=== PATIENT | male | born 1945 | race Caucasian/White ===

== ENCOUNTER 2020-09-09 23:08 | Inpatient (IN) ==
[2020-09-09] MEDS ORDERED: FUROSEMIDE 40 MG/4 ML VIAL IV STA (23:36)
[2020-09-09] MEDS ORDERED: ONDANSETRON 4 MG/2 ML VIAL IV STA (23:36)
[2020-09-10 00:04] LABS: Basophils % 0.6 % (0.0-0.8); Eosinophils # 0.5 10*3/uL (0.0-0.87); Hematocrit 24.8 VOL% (42.0-52.0); Hemoglobin 7.3 GM/DL (14.0-18.0); Immature Granulocytes % 0.6 %; Immature Granulocytes Absolute 0.04 #; Lymphocytes # 1.9 10*3/uL (1.4-4.0); Lymphocytes % 26.9 % (21.2-54.2); Mean Corpuscular HGB Conc 29.4 GM/DL (32-36); Mean Corpuscular Volume 97.6 FL (87-102); Mean Platelet Volume 8.8 FL (9.6-12.0); Monocytes % 17.1 % (1.7-12.7); Neutrophils % 47.8 % (38.7-73.9); Platelet Count 279 T/CUMM (130-400); Red Blood Count 2.54 MC/CUMM (3.8-5.5); Red Cell Distribution Width 14.7 % (9.3-17.3); White Blood Count 6.9 T/CUMM (4-12)
[2020-09-10 00:21] LABS: PT Patient Result 10.9 SECS (9.8-11.9)
[2020-09-10 00:45] LABS: Alanine Aminotransferase 21 U/L (16-61); Alkaline Phosphatase 78 U/L (45-117); Aspartate Amino Transferase 16 U/L (0-37); Bilirubin,Total < 0.39 MG/DL (0.2-1.0); Blood Urea Nitrogen 44 MG/DL (7-18); Calcium 7.7 MG/DL (8.5-10.1); Carbon Dioxide 26 MMOL/L (21-32); Estimated Glom Filtration Rate 30 ML/MIN; Glucose 116 MG/DL (74-106); Osmolality,Calculated 288.5 MOS/KG (273-304); Potassium 5.2 MMOL/L (3.5-5.1); Sodium 139 MMOL/L (136-145); Total Protein 6.9 G/DL (6.4-8.3)
[2020-09-10 01:04] LABS: Bilirubin,Urine Negative (Negative); Blood, Urine Negative (Negative); Glucose,Urine (UA) Negative (Negative); Ketones,Urine Negative (Negative); Mucus,Urine Occasional /LPF (Occasional); Nitrite,Urine Negative (Negative); Protein,Urine 100 MG/DL; RBC,Urine 19 /HPF (0-4); Squamous Epithelial Cell,Urine Occasional /HPF (0-10); Urine Appearance Slightly Hazy (Clear); Urine Color Yellow (Yellow); Urine Specific Gravity 1.013 (1.001-1.035); Urine Urobilinogen < 2.0 EU/DL (0.2-1.0); WBC,Urine 56 /HPF (0-6)
[2020-09-10] MEDS ORDERED: cefTRIAXone 1,000 MG in SODIUM CHLORIDE 0.9% 100 ML IV STA (01:15)
[2020-09-10] MEDS ORDERED: cefTRIAXone 1,000 MG VIAL ONE (01:28)
[2020-09-10] MEDS ORDERED: SODIUM CHLORIDE 0.9% 100 ML IV ONE (01:29)
[2020-09-10] MEDS ORDERED: NITROGLYCERIN SL 0.4 MG TABLET SL PRN (02:38)
[2020-09-10] MEDS ORDERED: ACETAMINOPHEN 325 MG TABLET PO PRN (02:44)
[2020-09-10] MEDS ORDERED: GLUCAGON 1 MG VIAL IM PRN (02:44)
[2020-09-10] MEDS ORDERED: ONDANSETRON 4 MG/2 ML VIAL IV PRN (02:44)
[2020-09-10] MEDS ORDERED: DEXTROSE 50% 25 GM/50 ML VIAL IV PRN (02:44)
[2020-09-10] MEDS ORDERED: ALBUTEROL/IPRATROPIUM 3 ML NEB RESP TX PRN (02:50)
[2020-09-10] MEDS ORDERED: ALBUTEROL/IPRATROPIUM 3 ML NEB RESP TX ONE (02:50)
[2020-09-10 04:15] LABS: Eosinophils 12 % (0-10); Hypochromasia Slight; Lymphocytes 21 % (20-55); Metamyelocytes 1 %; Segmented Neutrophils 50 % (50-85); Total Cells Counted 100
[2020-09-10 04:17] LABS: Microcytosis 1+
[2020-09-10 04:18] LABS: Platelet Estimate Normal
[2020-09-10 06:12] LABS: Basophils # 0.1 10*3/uL (0.0-0.2); Basophils % 0.7 % (0.0-0.8); Eosinophils # 0.4 10*3/uL (0.0-0.87); Eosinophils % 6.3 % (0.00-10.9); Hematocrit 22.7 VOL% (42.0-52.0); Hemoglobin 6.6 GM/DL (14.0-18.0); Immature Granulocytes % 0.4 %; Immature Granulocytes Absolute 0.03 #; Lymphocytes # 2.1 10*3/uL (1.4-4.0); Lymphocytes % 31.3 % (21.2-54.2); Mean Corpuscular HGB Conc 29.1 GM/DL (32-36); Mean Corpuscular Volume 97.4 FL (87-102); Mean Platelet Volume 9.1 FL (9.6-12.0); Monocytes % 18.2 % (1.7-12.7); Neutrophils % 43.1 % (38.7-73.9); Platelet Count 272 T/CUMM (130-400); Red Blood Count 2.33 MC/CUMM (3.8-5.5); Red Cell Distribution Width 14.9 % (9.3-17.3); White Blood Count 6.7 T/CUMM (4-12)
[2020-09-10 06:50] LABS: Albumin 2.6 G/DL (3.4-5.0); Bilirubin,Total 0.7 MG/DL (0.2-1.0); Calcium 7.7 MG/DL (8.5-10.1); Osmolality,Calculated 287.5 MOS/KG (273-304); Potassium 4.9 MMOL/L (3.5-5.1); Total Protein 6.8 G/DL (6.4-8.3)
[2020-09-10 06:55] LABS: Eosinophils 15 % (0-10); Hypochromasia 1+; Lymphocytes 26 % (20-55); Segmented Neutrophils 46 % (50-85); Total Cells Counted 100
[2020-09-10 06:56] LABS: Microcytosis 1+; Ovalocytes Slight; Platelet Estimate Normal; Polychromasia Slight
[2020-09-10] MEDS ORDERED: amLODIPine 10 MG TABLET PO SCH (09:00)
[2020-09-10] MEDS: FINASTERIDE 5 MG TABLET PO SCH (09:42)
[2020-09-10] MEDS: busPIRone 15 MG TABLET PO SCH (09:42)
[2020-09-10] MEDS: ASPIRIN EC 81 MG TABLET PO SCH (09:42)
[2020-09-10] MEDS: TAMSULOSIN 0.4 MG CAPSULE PO SCH (09:42)
[2020-09-10] MEDS: FUROSEMIDE 40 MG/4 ML VIAL IV SCH ×2 (09:42→19:21)
[2020-09-10] MEDS: MULTIVITAMIN (OCUVITE) TABLET PO SCH ×2 (09:42→21:32)
[2020-09-10] MEDS: PANTOPRAZOLE 20 MG TABLET PO SCH (09:42)
[2020-09-10] MEDS: ATORVASTATIN 20 MG TABLET PO SCH (09:42)
[2020-09-10] MEDS: SOTALOL 80 MG TABLET PO SCH ×2 (09:42→21:32)
[2020-09-10] MEDS: POLYETHYLENE GLYCOL POWDER 17 GM PACK PO SCH (09:43)
[2020-09-10] MEDS: BISACODYL 5 MG TABLET PO SCH (09:46)
[2020-09-10] MEDS ORDERED: SODIUM CHLORIDE 0.9% 1,000 ML IV PRN (17:41)
[2020-09-10] MEDS: APIXABAN 2.5 MG TABLET PO SCH (21:31)
[2020-09-10] MEDS: rOPINIRole 1 MG TABLET PO SCH (21:32)
[2020-09-11] MEDS: cefTRIAXone 1,000 MG in SYRINGE 1 EACH IV SCH (01:51)
[2020-09-11] MEDS: FUROSEMIDE 40 MG/4 ML VIAL IV SCH ×2 (09:09→18:47)
[2020-09-11] MEDS: busPIRone 15 MG TABLET PO SCH (09:09)
[2020-09-11] MEDS: FINASTERIDE 5 MG TABLET PO SCH (09:10)
[2020-09-11] MEDS: PANTOPRAZOLE 20 MG TABLET PO SCH (09:10)
[2020-09-11] MEDS: BISACODYL 5 MG TABLET PO SCH (09:10)
[2020-09-11] MEDS: MULTIVITAMIN (OCUVITE) TABLET PO SCH ×2 (09:10→20:16)
[2020-09-11] MEDS: ATORVASTATIN 20 MG TABLET PO SCH (09:10)
[2020-09-11] MEDS: ASPIRIN EC 81 MG TABLET PO SCH (09:10)
[2020-09-11] MEDS: TAMSULOSIN 0.4 MG CAPSULE PO SCH (09:11)
[2020-09-11] MEDS: SOTALOL 80 MG TABLET PO SCH ×2 (09:11→20:16)
[2020-09-11] MEDS: POLYETHYLENE GLYCOL POWDER 17 GM PACK PO SCH (09:11)
[2020-09-11] MEDS: APIXABAN 2.5 MG TABLET PO SCH (09:11)
[2020-09-11 10:40] LABS: Basophils # 0.1 10*3/uL (0.0-0.2); Basophils % 1.1 % (0.0-0.8); Eosinophils # 0.5 10*3/uL (0.0-0.87); Eosinophils % 8.1 % (0.00-10.9); Hematocrit 25.2 VOL% (42.0-52.0); Hemoglobin 7.5 GM/DL (14.0-18.0); Immature Granulocytes % 0.4 %; Immature Granulocytes Absolute 0.02 #; Lymphocytes # 1.9 10*3/uL (1.4-4.0); Lymphocytes % 34.4 % (21.2-54.2); Mean Corpuscular HGB Conc 29.8 GM/DL (32-36); Mean Corpuscular Volume 96.9 FL (87-102); Mean Platelet Volume 8.8 FL (9.6-12.0); Monocytes % 18.7 % (1.7-12.7); Neutrophils % 37.3 % (38.7-73.9); Platelet Count 264 T/CUMM (130-400); Red Cell Distribution Width 15.4 % (9.3-17.3); White Blood Count 5.6 T/CUMM (4-12)
[2020-09-11 10:59] LABS: Calcium 7.9 MG/DL (8.5-10.1); Osmolality,Calculated 282.2 MOS/KG (273-304); Potassium 5.2 MMOL/L (3.5-5.1)
[2020-09-11 11:12] LABS: Eosinophils 10 % (0-10); Lymphocytes 33 % (20-55); Platelet Estimate Adequate; Segmented Neutrophils 42 % (50-85); Total Cells Counted 100
[2020-09-11 11:13] LABS: Hypochromasia 2+; Microcytosis 1+
[2020-09-11] MEDS: rOPINIRole 1 MG TABLET PO SCH (20:16)
[2020-09-11] MEDS: ZALEPLON 5 MG CAPSULE PO PRN (22:32)
[2020-09-12] MEDS: cefTRIAXone 1,000 MG in SYRINGE 1 EACH IV SCH (01:55)
[2020-09-12 05:22] LABS: Basophils # 0.1 10*3/uL (0.0-0.2); Eosinophils # 0.6 10*3/uL (0.0-0.87); Eosinophils % 8.9 % (0.00-10.9); Hematocrit 25.5 VOL% (42.0-52.0); Hemoglobin 7.7 GM/DL (14.0-18.0); Immature Granulocytes % 0.8 %; Immature Granulocytes Absolute 0.06 #; Lymphocytes # 2.1 10*3/uL (1.4-4.0); Lymphocytes % 29.5 % (21.2-54.2); Mean Corpuscular HGB Conc 30.2 GM/DL (32-36); Mean Corpuscular Volume 95.9 FL (87-102); Mean Platelet Volume 8.9 FL (9.6-12.0); Monocytes % 18.8 % (1.7-12.7); Platelet Count 288 T/CUMM (130-400); Red Blood Count 2.66 MC/CUMM (3.8-5.5); Red Cell Distribution Width 15.4 % (9.3-17.3); White Blood Count 7.1 T/CUMM (4-12)
[2020-09-12 05:47] LABS: Calcium 7.9 MG/DL (8.5-10.1); Potassium 4.9 MMOL/L (3.5-5.1)
[2020-09-12 05:49] LABS: Atypical Lymphocytes Few; Band Neutrophils 1 % (0-10); Eosinophils 10 % (0-10); Lymphocytes 32 % (20-55); Segmented Neutrophils 43 % (50-85); Total Cells Counted 100
[2020-09-12 05:50] LABS: Hypochromasia 2+; Microcytosis 1+; Polychromasia Slight
[2020-09-12 05:51] LABS: Platelet Estimate Normal
[2020-09-12] MEDS: MULTIVITAMIN (OCUVITE) TABLET PO SCH ×2 (08:49→20:39)
[2020-09-12] MEDS: busPIRone 15 MG TABLET PO SCH (08:50)
[2020-09-12] MEDS: ATORVASTATIN 20 MG TABLET PO SCH (08:50)
[2020-09-12] MEDS: FINASTERIDE 5 MG TABLET PO SCH (08:50)
[2020-09-12] MEDS: BISACODYL 5 MG TABLET PO SCH (08:50)
[2020-09-12] MEDS: ASPIRIN EC 81 MG TABLET PO SCH (08:50)
[2020-09-12] MEDS: SOTALOL 80 MG TABLET PO SCH ×2 (08:50→20:39)
[2020-09-12] MEDS: TAMSULOSIN 0.4 MG CAPSULE PO SCH ×2 (08:51→20:39)
[2020-09-12] MEDS: PANTOPRAZOLE 20 MG TABLET PO SCH (08:51)
[2020-09-12] MEDS: FUROSEMIDE 40 MG/4 ML VIAL IV SCH ×2 (08:51→16:44)
[2020-09-12] MEDS: POLYETHYLENE GLYCOL POWDER 17 GM PACK PO SCH (08:51)
[2020-09-12] MEDS ORDERED: SODIUM CHLORIDE 0.9% 1,000 ML IV PRN (14:25)
[2020-09-12] MEDS: ZALEPLON 5 MG CAPSULE PO PRN (20:39)
[2020-09-12] MEDS: rOPINIRole 1 MG TABLET PO SCH (20:39)
[2020-09-13] MEDS: cefTRIAXone 1,000 MG in SYRINGE 1 EACH IV SCH ×2 (01:58→02:00)
[2020-09-13 05:50] LABS: Basophils # 0.1 10*3/uL (0.0-0.2); Basophils % 1.1 % (0.0-0.8); Eosinophils # 0.6 10*3/uL (0.0-0.87); Eosinophils % 9.3 % (0.00-10.9); Hemoglobin 8.8 GM/DL (14.0-18.0); Immature Granulocytes % 0.5 %; Immature Granulocytes Absolute 0.03 #; Lymphocytes # 1.7 10*3/uL (1.4-4.0); Mean Corpuscular HGB Conc 30.3 GM/DL (32-36); Mean Corpuscular Volume 93.5 FL (87-102); Mean Platelet Volume 8.9 FL (9.6-12.0); Neutrophils % 45.1 % (38.7-73.9); Platelet Count 314 T/CUMM (130-400); Red Cell Distribution Width 15.9 % (9.3-17.3); White Blood Count 6.7 T/CUMM (4-12)
[2020-09-13 06:30] LABS: Anisocytosis 2+; Band Neutrophils 5 % (0-10); Eosinophils 10 % (0-10); Lymphocytes 25 % (20-55); Macrocytosis Slight; Ovalocytes Few; Platelet Estimate Normal; Segmented Neutrophils 41 % (50-85); Total Cells Counted 100
[2020-09-13 09:01] LABS: Calcium 8.3 MG/DL (8.5-10.1); Osmolality,Calculated 286.8 MOS/KG (273-304); Potassium 4.9 MMOL/L (3.5-5.1)
[2020-09-13] MEDS: busPIRone 15 MG TABLET PO SCH (09:47)
[2020-09-13] MEDS: BISACODYL 5 MG TABLET PO SCH (09:47)
[2020-09-13] MEDS: FUROSEMIDE 40 MG/4 ML VIAL IV SCH ×2 (09:47→16:04)
[2020-09-13] MEDS: ASPIRIN EC 81 MG TABLET PO SCH (09:47)
[2020-09-13] MEDS: TAMSULOSIN 0.4 MG CAPSULE PO SCH ×2 (09:47→21:32)
[2020-09-13] MEDS: POLYETHYLENE GLYCOL POWDER 17 GM PACK PO SCH (09:48)
[2020-09-13] MEDS: ASCORBIC ACID 500 MG TABLET PO SCH ×2 (09:48→21:32)
[2020-09-13] MEDS: PANTOPRAZOLE 20 MG TABLET PO SCH (09:48)
[2020-09-13] MEDS: MULTIVITAMIN (OCUVITE) TABLET PO SCH ×2 (09:48→21:32)
[2020-09-13] MEDS: ATORVASTATIN 20 MG TABLET PO SCH (09:48)
[2020-09-13] MEDS: FINASTERIDE 5 MG TABLET PO SCH (09:48)
[2020-09-13] MEDS: rOPINIRole 1 MG TABLET PO SCH (21:32)
[2020-09-14] MEDS: cefTRIAXone 1,000 MG in SYRINGE 1 EACH IV SCH (01:31)
[2020-09-14 05:24] LABS: Basophils # 0.1 10*3/uL (0.0-0.2); Basophils % 0.8 % (0.0-0.8); Eosinophils # 0.7 10*3/uL (0.0-0.87); Eosinophils % 10.1 % (0.00-10.9); Hematocrit 27.7 VOL% (42.0-52.0); Hemoglobin 8.3 GM/DL (14.0-18.0); Immature Granulocytes Absolute 0.07 #; Lymphocytes # 2.3 10*3/uL (1.4-4.0); Lymphocytes % 31.6 % (21.2-54.2); Mean Corpuscular Volume 94.5 FL (87-102); Mean Platelet Volume 8.9 FL (9.6-12.0); Monocytes % 19.6 % (1.7-12.7); Neutrophils % 36.9 % (38.7-73.9); Platelet Count 317 T/CUMM (130-400); Red Blood Count 2.93 MC/CUMM (3.8-5.5); Red Cell Distribution Width 15.9 % (9.3-17.3); White Blood Count 7.2 T/CUMM (4-12)
[2020-09-14 05:51] LABS: Albumin 2.7 G/DL (3.4-5.0); Bilirubin,Total 0.4 MG/DL (0.2-1.0); Calcium 7.9 MG/DL (8.5-10.1); Osmolality,Calculated 292.3 MOS/KG (273-304); Potassium 4.4 MMOL/L (3.5-5.1); Total Protein 6.9 G/DL (5.0-7.5)
[2020-09-14 06:25] LABS: Eosinophils 15 % (0-10); Hypochromasia Slight; Lymphocytes 38 % (20-55); Platelet Estimate Normal; Segmented Neutrophils 37 % (50-85); Total Cells Counted 100
[2020-09-14] MEDS: ASCORBIC ACID 500 MG TABLET PO SCH ×2 (08:56→21:14)
[2020-09-14] MEDS: FINASTERIDE 5 MG TABLET PO SCH (08:56)
[2020-09-14] MEDS: MULTIVITAMIN (OCUVITE) TABLET PO SCH ×2 (08:57→21:14)
[2020-09-14] MEDS: PANTOPRAZOLE 20 MG TABLET PO SCH (08:57)
[2020-09-14] MEDS: ATORVASTATIN 20 MG TABLET PO SCH (08:57)
[2020-09-14] MEDS: TAMSULOSIN 0.4 MG CAPSULE PO SCH ×2 (08:57→21:14)
[2020-09-14] MEDS: BISACODYL 5 MG TABLET PO SCH (08:57)
[2020-09-14] MEDS: ASPIRIN EC 81 MG TABLET PO SCH (08:57)
[2020-09-14] MEDS: busPIRone 15 MG TABLET PO SCH (08:58)
[2020-09-14] MEDS: FUROSEMIDE 40 MG/4 ML VIAL IV SCH ×2 (09:02→16:55)
[2020-09-14] MEDS: POLYETHYLENE GLYCOL POWDER 17 GM PACK PO SCH (09:08)
[2020-09-14] MEDS: rOPINIRole 1 MG TABLET PO SCH (21:14)
[2020-09-15] MEDS: cefTRIAXone 1,000 MG in SYRINGE 1 EACH IV SCH (01:31)
[2020-09-15] MEDS: BISACODYL 5 MG TABLET PO SCH (08:51)
[2020-09-15] MEDS: TAMSULOSIN 0.4 MG CAPSULE PO SCH ×2 (08:51→20:15)
[2020-09-15] MEDS: MULTIVITAMIN (OCUVITE) TABLET PO SCH ×2 (08:51→20:15)
[2020-09-15] MEDS: ATORVASTATIN 20 MG TABLET PO SCH (08:51)
[2020-09-15] MEDS: POLYETHYLENE GLYCOL POWDER 17 GM PACK PO SCH (08:51)
[2020-09-15] MEDS: PANTOPRAZOLE 20 MG TABLET PO SCH (08:51)
[2020-09-15] MEDS: ASCORBIC ACID 500 MG TABLET PO SCH ×2 (08:51→20:15)
[2020-09-15] MEDS: ASPIRIN EC 81 MG TABLET PO SCH (08:52)
[2020-09-15] MEDS: busPIRone 15 MG TABLET PO SCH (08:53)
[2020-09-15] MEDS: FINASTERIDE 5 MG TABLET PO SCH (08:53)
[2020-09-15] MEDS: FUROSEMIDE 40 MG/4 ML VIAL IV SCH ×2 (08:53→16:53)
[2020-09-15] MEDS ORDERED: LIDOCAINE 5% PATCH TRANSDERM PRN (10:02)
[2020-09-15] MEDS: rOPINIRole 1 MG TABLET PO SCH (20:15)
[2020-09-16] MEDS: cefTRIAXone 1,000 MG in SYRINGE 1 EACH IV SCH (01:33)
[2020-09-16 05:35] LABS: Basophils # 0.1 10*3/uL (0.0-0.2); Basophils % 1.2 % (0.0-0.8); Eosinophils # 0.6 10*3/uL (0.0-0.87); Hematocrit 28.3 VOL% (42.0-52.0); Hemoglobin 8.6 GM/DL (14.0-18.0); Immature Granulocytes % 0.9 %; Immature Granulocytes Absolute 0.07 #; Lymphocytes # 2.2 10*3/uL (1.4-4.0); Lymphocytes % 29.1 % (21.2-54.2); Mean Corpuscular HGB Conc 30.4 GM/DL (32-36); Mean Corpuscular Volume 94.3 FL (87-102); Mean Platelet Volume 8.9 FL (9.6-12.0); Monocytes % 16.3 % (1.7-12.7); Neutrophils % 44.5 % (38.7-73.9); Platelet Count 333 T/CUMM (130-400); Red Cell Distribution Width 15.9 % (9.3-17.3); White Blood Count 7.4 T/CUMM (4-12)
[2020-09-16 05:56] LABS: Eosinophils 5 % (0-10); Lymphocytes 31 % (20-55); Platelet Estimate Adequate; Segmented Neutrophils 51 % (50-85); Total Cells Counted 100
[2020-09-16 05:57] LABS: Atypical Lymphocytes Few; Hypochromasia 1+; Microcytosis 1+
[2020-09-16 06:06] LABS: Calcium 7.9 MG/DL (8.5-10.1); Potassium 4.2 MMOL/L (3.5-5.1)
[2020-09-16] MEDS: ASCORBIC ACID 500 MG TABLET PO SCH ×2 (08:53→20:54)
[2020-09-16] MEDS: BISACODYL 5 MG TABLET PO SCH (08:53)
[2020-09-16] MEDS: ATORVASTATIN 20 MG TABLET PO SCH (08:53)
[2020-09-16] MEDS: FINASTERIDE 5 MG TABLET PO SCH (08:53)
[2020-09-16] MEDS: TAMSULOSIN 0.4 MG CAPSULE PO SCH ×2 (08:54→20:54)
[2020-09-16] MEDS: ASPIRIN EC 81 MG TABLET PO SCH (08:54)
[2020-09-16] MEDS: busPIRone 15 MG TABLET PO SCH (08:54)
[2020-09-16] MEDS: PANTOPRAZOLE 20 MG TABLET PO SCH (08:54)
[2020-09-16] MEDS: POLYETHYLENE GLYCOL POWDER 17 GM PACK PO SCH (08:54)
[2020-09-16] MEDS: FUROSEMIDE 40 MG/4 ML VIAL IV SCH ×2 (08:54→17:04)
[2020-09-16] MEDS: MULTIVITAMIN (OCUVITE) TABLET PO SCH ×2 (08:54→20:54)
[2020-09-16] MEDS: rOPINIRole 1 MG TABLET PO SCH (20:54)
[2020-09-17] MEDS: cefTRIAXone 1,000 MG in SYRINGE 1 EACH IV SCH (01:42)
[2020-09-17 06:04] LABS: Basophils # 0.1 10*3/uL (0.0-0.2); Basophils % 0.8 % (0.0-0.8); Eosinophils # 0.5 10*3/uL (0.0-0.87); Eosinophils % 7.4 % (0.00-10.9); Hematocrit 27.3 VOL% (42.0-52.0); Hemoglobin 8.1 GM/DL (14.0-18.0); Immature Granulocytes % 0.7 %; Immature Granulocytes Absolute 0.05 #; Lymphocytes # 2.1 10*3/uL (1.4-4.0); Lymphocytes % 28.6 % (21.2-54.2); Mean Corpuscular HGB Conc 29.7 GM/DL (32-36); Mean Corpuscular Volume 95.1 FL (87-102); Mean Platelet Volume 8.9 FL (9.6-12.0); Monocytes % 16.9 % (1.7-12.7); Neutrophils % 45.6 % (38.7-73.9); Platelet Count 331 T/CUMM (130-400); Red Blood Count 2.87 MC/CUMM (3.8-5.5); Red Cell Distribution Width 15.9 % (9.3-17.3); White Blood Count 7.3 T/CUMM (4-12)
[2020-09-17 06:24] LABS: Eosinophils 6 % (0-10); Lymphocytes 21 % (20-55); Nucleated Red Blood Cells 1 (0-5); Platelet Estimate Adequate; Segmented Neutrophils 55 % (50-85); Total Cells Counted 100
[2020-09-17 06:25] LABS: Atypical Lymphocytes Few; Calcium 7.9 MG/DL (8.5-10.1); Hypochromasia 1+; Microcytosis 1+; Osmolality,Calculated 295.3 MOS/KG (273-304); Ovalocytes Slight; Potassium 4.4 MMOL/L (3.5-5.1)
[2020-09-17] MEDS ORDERED: SOTALOL 80 MG TABLET PO SCH (07:58)
[2020-09-17] MEDS: ASCORBIC ACID 500 MG TABLET PO SCH (09:03)
[2020-09-17] MEDS: FINASTERIDE 5 MG TABLET PO SCH (09:03)
[2020-09-17] MEDS: BISACODYL 5 MG TABLET PO SCH (09:03)
[2020-09-17] MEDS: ASPIRIN EC 81 MG TABLET PO SCH (09:03)
[2020-09-17] MEDS: MULTIVITAMIN (OCUVITE) TABLET PO SCH (09:03)
[2020-09-17] MEDS: TAMSULOSIN 0.4 MG CAPSULE PO SCH (09:03)
[2020-09-17] MEDS: busPIRone 15 MG TABLET PO SCH (09:03)
[2020-09-17] MEDS: ATORVASTATIN 20 MG TABLET PO SCH (09:04)
[2020-09-17] MEDS: POLYETHYLENE GLYCOL POWDER 17 GM PACK PO SCH (09:04)
[2020-09-17] MEDS: PANTOPRAZOLE 20 MG TABLET PO SCH (09:04)
[2020-09-17] MEDS: FUROSEMIDE 40 MG/4 ML VIAL IV SCH (09:13)
[2020-09-17 12:04] VITALS: BP 133/69
== END 2020-09-17 13:25 | disposition home or self-care (01) | DRG 813 ==
LOC: EDUNIT# → EDBD → N.ED 23:08 → N.4E 09-10 01:58
PROVIDERS: ADMIT Family Medicine; ATTEND Family Medicine

== ENCOUNTER 2021-10-10 19:18 | Inpatient (IN) ==
[2021-10-10 21:34] LABS: Basophils % 0.3 % (0.0-0.8); Eosinophils # 0.2 10*3/uL (0.0-0.87); Eosinophils % 1.2 % (0.00-10.9); Hematocrit 36.8 VOL% (42.0-52.0); Hemoglobin 11.9 GM/DL (14.0-18.0); Immature Granulocytes % 1.3 %; Immature Granulocytes Absolute 0.19 #; Lymphocytes # 0.9 10*3/uL (1.4-4.0); Lymphocytes % 6.2 % (21.2-54.2); Mean Corpuscular HGB Conc 32.3 GM/DL (32-36); Mean Corpuscular Volume 97.9 FL (87-102); Mean Platelet Volume 8.9 FL (9.6-12.0); Monocytes % 10.2 % (1.7-12.7); Neutrophils % 80.8 % (38.7-73.9); Platelet Count 205 T/CUMM (130-400); Red Blood Count 3.76 MC/CUMM (3.8-5.5); Red Cell Distribution Width 13.9 % (9.3-17.3); White Blood Count 14.2 T/CUMM (4-12)
[2021-10-10 21:52] LABS: Calcium 7.9 MG/DL (8.5-10.1); Osmolality,Calculated 286.8 MOS/KG (273-304); Potassium 3.3 MMOL/L (3.5-5.1)
[2021-10-10 22:41] LABS: Glucose,Urine (UA) Negative (Negative); Ketones,Urine Negative (Negative); Nitrite,Urine Negative (Negative); Protein,Urine >=300 mg/dL (Negative); Urine Appearance CLOUDY (Clear); Urine Color Yellow (Yellow); Urine pH 5.5 (4.5-8.0)
[2021-10-10 22:42] LABS: Bilirubin,Urine Negative (Negative); Blood, Urine Large mg/dL (Negative); Urine Urobilinogen 0.2 eU/dL (<2.0)
[2021-10-10] MEDS ORDERED: cefTRIAXone 1,000 MG in SODIUM CHLORIDE 0.9% 100 ML IV STA (22:44)
[2021-10-10] MEDS ORDERED: AZITHROMYCIN INJ 500 MG in SODIUM CHLORIDE 0.9% 250 ML IV STA (22:44)
[2021-10-10] MEDS ORDERED: ONDANSETRON 4 MG/2 ML VIAL IV PRN (22:49)
[2021-10-10 22:55] LABS: Mucus,Urine Few /LPF (Occasional); RBC,Urine 42 /HPF (0-4)
[2021-10-10] MEDS: SODIUM CHLORIDE 0.45% 1,000 ML IV SCH (23:33)
[2021-10-11] MEDS: PANTOPRAZOLE 40 MG TABLET PO SCH (09:19)
[2021-10-11] MEDS: SODIUM CHLORIDE 0.45% 1,000 ML IV SCH (11:37)
[2021-10-11] MEDS: cefTRIAXone 1,000 MG in SODIUM CHLORIDE 0.9% 100 ML IV SCH (16:10)
[2021-10-11] MEDS: AZITHROMYCIN INJ 250 MG in SODIUM CHLORIDE 0.9% 250 ML IV SCH (20:43)
[2021-10-12] MEDS: SODIUM CHLORIDE 0.45% 1,000 ML IV SCH ×2 (05:52)
[2021-10-12] MEDS: ACETAMINOPHEN 325 MG TABLET PO PRN (09:09)
[2021-10-12] MEDS: PANTOPRAZOLE 40 MG TABLET PO SCH (09:11)
[2021-10-12] MEDS: cefTRIAXone 1,000 MG in SODIUM CHLORIDE 0.9% 100 ML IV SCH (14:52)
[2021-10-12] MEDS: AZITHROMYCIN INJ 250 MG in SODIUM CHLORIDE 0.9% 250 ML IV SCH (20:40)
[2021-10-12] MEDS: MELATONIN 3 MG TABLET PO PRN (22:20)
[2021-10-13] MEDS: SODIUM CHLORIDE 0.45% 1,000 ML IV SCH ×3 (00:54→20:57)
[2021-10-13 06:15] LABS: Basophils # 0.1 10*3/uL (0.0-0.2); Basophils % 0.5 % (0.0-0.8); Eosinophils # 0.1 10*3/uL (0.0-0.87); Eosinophils % 1.3 % (0.00-10.9); Hematocrit 36.8 VOL% (42.0-52.0); Hemoglobin 11.5 GM/DL (14.0-18.0); Immature Granulocytes Absolute 0.09 #; Lymphocytes # 0.9 10*3/uL (1.4-4.0); Lymphocytes % 9.4 % (21.2-54.2); Mean Corpuscular HGB Conc 31.3 GM/DL (32-36); Mean Corpuscular Volume 98.9 FL (87-102); Mean Platelet Volume 9.8 FL (9.6-12.0); Monocytes % 13.8 % (1.7-12.7); Platelet Count 169 T/CUMM (130-400); Red Blood Count 3.72 MC/CUMM (3.8-5.5); Red Cell Distribution Width 14.1 % (9.3-17.3)
[2021-10-13 06:24] LABS: White Blood Count 9.4 T/CUMM (4-12)
[2021-10-13 06:36] LABS: Albumin 2.1 G/DL (3.4-5.0); Bilirubin,Total 0.5 MG/DL (0.20-1.00); Calcium 7.4 MG/DL (8.5-10.1); Osmolality,Calculated 285.8 MOS/KG (273-304); Potassium 3.9 MMOL/L (3.5-5.1); Total Protein 6.3 G/DL (6.4-8.2)
[2021-10-13] MEDS: PANTOPRAZOLE 40 MG TABLET PO SCH (08:59)
[2021-10-13] MEDS ORDERED: BISACODYL 5 MG TABLET PO PRN (14:09)
[2021-10-13] MEDS: cefTRIAXone 1,000 MG in SODIUM CHLORIDE 0.9% 100 ML IV SCH (17:06)
[2021-10-13] MEDS: ALBUTEROL/IPRATROPIUM 3 ML NEB RESP TX SCH (20:07)
[2021-10-13] MEDS: MONTELUKAST 10 MG TABLET PO SCH (21:00)
[2021-10-13] MEDS: AZITHROMYCIN INJ 250 MG in SODIUM CHLORIDE 0.9% 250 ML IV SCH (21:00)
[2021-10-14] MEDS: MELATONIN 3 MG TABLET PO PRN ×2 (00:18→20:31)
[2021-10-14] MEDS: ALBUTEROL/IPRATROPIUM 3 ML NEB RESP TX SCH ×4 (01:40→19:00)
[2021-10-14 05:37] LABS: Basophils # 0.1 10*3/uL (0.0-0.2); Basophils % 0.8 % (0.0-0.8); Eosinophils # 0.1 10*3/uL (0.0-0.87); Eosinophils % 1.3 % (0.00-10.9); Hematocrit 35.4 VOL% (42.0-52.0); Hemoglobin 11.2 GM/DL (14.0-18.0); Immature Granulocytes % 1.3 %; Lymphocytes % 12.9 % (21.2-54.2); Mean Corpuscular HGB Conc 31.6 GM/DL (32-36); Mean Corpuscular Volume 98.1 FL (87-102); Monocytes % 17.1 % (1.7-12.7); Neutrophils % 66.6 % (38.7-73.9); Platelet Count 179 T/CUMM (130-400); Red Blood Count 3.61 MC/CUMM (3.8-5.5); Red Cell Distribution Width 14.1 % (9.3-17.3)
[2021-10-14 05:59] LABS: Band Neutrophils 2 % (0-10); Eosinophils 6 % (0-10); Lymphocytes 14 % (20-55); Segmented Neutrophils 68 % (50-85); Total Cells Counted 100
[2021-10-14 06:00] LABS: Calcium 7.4 MG/DL (8.5-10.1); Hypochromia Slight; Microcytosis Slight; Osmolality,Calculated 282.8 MOS/KG (273-304); Potassium 3.7 MMOL/L (3.5-5.1)
[2021-10-14] MEDS: PANTOPRAZOLE 40 MG TABLET PO SCH (09:18)
[2021-10-14] MEDS: cefTRIAXone 1,000 MG in SODIUM CHLORIDE 0.9% 100 ML IV SCH (15:45)
[2021-10-14] MEDS: MONTELUKAST 10 MG TABLET PO SCH (20:31)
[2021-10-14] MEDS: ACETAMINOPHEN 325 MG TABLET PO PRN (20:31)
[2021-10-14] MEDS: SODIUM CHLORIDE 0.45% 1,000 ML IV SCH (20:33)
[2021-10-15] MEDS: ALBUTEROL/IPRATROPIUM 3 ML NEB RESP TX SCH ×4 (00:08→19:30)
[2021-10-15] MEDS: SODIUM CHLORIDE 0.45% 1,000 ML IV SCH ×3 (00:30→22:25)
[2021-10-15] MEDS: ACETAMINOPHEN 325 MG TABLET PO PRN (01:15)
[2021-10-15] MEDS: PANTOPRAZOLE 40 MG TABLET PO SCH (09:02)
[2021-10-15] MEDS: CLINDAMYCIN INJ 600 MG/50 ML PREMIX IV SCH ×2 (09:04→16:54)
[2021-10-15] MEDS: cefTRIAXone 1,000 MG in SODIUM CHLORIDE 0.9% 100 ML IV SCH (15:55)
[2021-10-15] MEDS: MELATONIN 3 MG TABLET PO PRN (20:56)
[2021-10-15] MEDS: MONTELUKAST 10 MG TABLET PO SCH (20:56)
[2021-10-16] MEDS: ALBUTEROL/IPRATROPIUM 3 ML NEB RESP TX SCH ×4 (00:40→19:26)
[2021-10-16] MEDS: CLINDAMYCIN INJ 600 MG/50 ML PREMIX IV SCH ×3 (01:35→16:53)
[2021-10-16 08:09] LABS: Basophils # 0.1 10*3/uL (0.0-0.2); Basophils % 0.5 % (0.0-0.8); Eosinophils # 0.3 10*3/uL (0.0-0.87); Eosinophils % 2.9 % (0.00-10.9); Hematocrit 33.4 VOL% (42.0-52.0); Hemoglobin 10.7 GM/DL (14.0-18.0); Immature Granulocytes Absolute 0.29 #; Lymphocytes # 1.3 10*3/uL (1.4-4.0); Lymphocytes % 13.4 % (21.2-54.2); Mean Corpuscular Volume 98.5 FL (87-102); Monocytes % 15.9 % (1.7-12.7); Neutrophils % 64.3 % (38.7-73.9); Platelet Count 206 T/CUMM (130-400); Red Blood Count 3.39 MC/CUMM (3.8-5.5); Red Cell Distribution Width 14.5 % (9.3-17.3); White Blood Count 9.5 T/CUMM (4-12)
[2021-10-16 08:25] LABS: Calcium 7.8 MG/DL (8.5-10.1); Osmolality,Calculated 282.5 MOS/KG (273-304)
[2021-10-16 08:30] LABS: Band Neutrophils 4 % (0-10); Eosinophils 6 % (0-10); Lymphocytes 12 % (20-55); Segmented Neutrophils 68 % (50-85); Total Cells Counted 100
[2021-10-16 08:31] LABS: Microcytosis Slight; Ovalocytes Slight; Polychromasia Slight
[2021-10-16 08:32] LABS: Atypical Lymphocytes Few
[2021-10-16] MEDS: PANTOPRAZOLE 40 MG TABLET PO SCH (09:25)
[2021-10-16] MEDS: SODIUM CHLORIDE 0.45% 1,000 ML IV SCH (11:28)
[2021-10-16] MEDS ORDERED: traMADol 50 MG TABLET PO PRN (11:29)
[2021-10-16] MEDS: cefTRIAXone 1,000 MG in SODIUM CHLORIDE 0.9% 100 ML IV SCH (14:07)
[2021-10-16] MEDS: FUROSEMIDE 40 MG TABLET PO SCH (15:40)
[2021-10-16] MEDS: SOTALOL 80 MG TABLET PO SCH (21:53)
[2021-10-16] MEDS: MULTIVITAMIN (OCUVITE) TABLET PO SCH (21:53)
[2021-10-16] MEDS: MONTELUKAST 10 MG TABLET PO SCH (21:53)
[2021-10-16] MEDS: TAMSULOSIN 0.4 MG CAPSULE PO SCH (21:53)
[2021-10-16] MEDS: rOPINIRole 1 MG TABLET PO SCH (21:53)
[2021-10-17] MEDS: ALBUTEROL/IPRATROPIUM 3 ML NEB RESP TX SCH ×4 (00:05→20:00)
[2021-10-17] MEDS: CLINDAMYCIN INJ 600 MG/50 ML PREMIX IV SCH (01:33)
[2021-10-17] MEDS: SODIUM CHLORIDE 0.45% 1,000 ML IV SCH (01:33)
[2021-10-17] MEDS: MELATONIN 3 MG TABLET PO PRN ×2 (02:36→22:02)
[2021-10-17 07:11] LABS: Basophils # 0.1 10*3/uL (0.0-0.2); Eosinophils # 0.3 10*3/uL (0.0-0.87); Eosinophils % 2.8 % (0.00-10.9); Hematocrit 33.8 VOL% (42.0-52.0); Hemoglobin 10.9 GM/DL (14.0-18.0); Immature Granulocytes % 3.8 %; Immature Granulocytes Absolute 0.36 #; Lymphocytes # 1.5 10*3/uL (1.4-4.0); Mean Corpuscular HGB Conc 32.2 GM/DL (32-36); Mean Platelet Volume 8.9 FL (9.6-12.0); Monocytes % 12.4 % (1.7-12.7); Platelet Count 264 T/CUMM (130-400); Red Blood Count 3.45 MC/CUMM (3.8-5.5); Red Cell Distribution Width 14.6 % (9.3-17.3); White Blood Count 9.5 T/CUMM (4-12)
[2021-10-17 07:28] LABS: Osmolality,Calculated 284.4 MOS/KG (273-304); Potassium 4.2 MMOL/L (3.5-5.1)
[2021-10-17 07:40] LABS: Platelet Estimate Normal
[2021-10-17 07:41] LABS: Anisocytosis 1+
[2021-10-17] MEDS: amLODIPine 10 MG TABLET PO SCH (09:48)
[2021-10-17] MEDS: FUROSEMIDE 40 MG TABLET PO SCH ×2 (09:48→15:34)
[2021-10-17] MEDS: PANTOPRAZOLE 40 MG TABLET PO SCH (09:48)
[2021-10-17] MEDS: ATORVASTATIN 20 MG TABLET PO SCH (09:48)
[2021-10-17] MEDS: FINASTERIDE 5 MG TABLET PO SCH (09:48)
[2021-10-17] MEDS: APIXABAN 2.5 MG TABLET PO SCH (09:49)
[2021-10-17] MEDS: MULTIVITAMIN (OCUVITE) TABLET PO SCH ×2 (09:49→22:02)
[2021-10-17] MEDS: SOTALOL 80 MG TABLET PO SCH ×2 (09:49→22:02)
[2021-10-17] MEDS: busPIRone 5 MG TABLET PO SCH (09:49)
[2021-10-17] MEDS: TAMSULOSIN 0.4 MG CAPSULE PO SCH ×2 (09:49→22:03)
[2021-10-17] MEDS: cefTRIAXone 1,000 MG in SODIUM CHLORIDE 0.9% 100 ML IV SCH (14:31)
[2021-10-17] MEDS: rOPINIRole 1 MG TABLET PO SCH (22:01)
[2021-10-17] MEDS: MONTELUKAST 10 MG TABLET PO SCH (22:03)
[2021-10-17] MEDS: SULFAMETHOX/TRIMETHOPRIM 800-160 MG TABLET PO SCH (22:03)
[2021-10-18] MEDS: ALBUTEROL/IPRATROPIUM 3 ML NEB RESP TX SCH ×4 (01:10→19:02)
[2021-10-18] MEDS: SODIUM CHLORIDE 0.45% 1,000 ML IV SCH ×2 (03:30→21:48)
[2021-10-18] MEDS: busPIRone 5 MG TABLET PO SCH (09:30)
[2021-10-18] MEDS: FINASTERIDE 5 MG TABLET PO SCH (09:30)
[2021-10-18] MEDS: SOTALOL 80 MG TABLET PO SCH ×2 (09:30→21:44)
[2021-10-18] MEDS: MULTIVITAMIN (OCUVITE) TABLET PO SCH ×2 (09:31→21:44)
[2021-10-18] MEDS: FUROSEMIDE 40 MG TABLET PO SCH ×2 (09:31→16:48)
[2021-10-18] MEDS: APIXABAN 2.5 MG TABLET PO SCH (09:31)
[2021-10-18] MEDS: SULFAMETHOX/TRIMETHOPRIM 800-160 MG TABLET PO SCH ×2 (09:31→21:44)
[2021-10-18] MEDS: ATORVASTATIN 20 MG TABLET PO SCH (09:31)
[2021-10-18] MEDS: PANTOPRAZOLE 40 MG TABLET PO SCH (09:31)
[2021-10-18] MEDS: amLODIPine 10 MG TABLET PO SCH (09:31)
[2021-10-18] MEDS: TAMSULOSIN 0.4 MG CAPSULE PO SCH ×2 (09:31→21:44)
[2021-10-18] MEDS: cefTRIAXone 1,000 MG in SODIUM CHLORIDE 0.9% 100 ML IV SCH (16:48)
[2021-10-18] MEDS: rOPINIRole 1 MG TABLET PO SCH (21:44)
[2021-10-18] MEDS: MONTELUKAST 10 MG TABLET PO SCH (21:44)
[2021-10-18] MEDS: MELATONIN 3 MG TABLET PO PRN (23:35)
[2021-10-19] MEDS: ALBUTEROL/IPRATROPIUM 3 ML NEB RESP TX SCH ×2 (00:29→07:15)
[2021-10-19] MEDS: SODIUM CHLORIDE 0.45% 1,000 ML IV SCH ×2 (05:46→13:01)
[2021-10-19] MEDS: busPIRone 5 MG TABLET PO SCH (09:02)
[2021-10-19] MEDS: SULFAMETHOX/TRIMETHOPRIM 800-160 MG TABLET PO SCH (09:02)
[2021-10-19] MEDS: FUROSEMIDE 40 MG TABLET PO SCH (09:02)
[2021-10-19] MEDS: amLODIPine 10 MG TABLET PO SCH (09:02)
[2021-10-19] MEDS: TAMSULOSIN 0.4 MG CAPSULE PO SCH (09:02)
[2021-10-19] MEDS: PANTOPRAZOLE 40 MG TABLET PO SCH (09:02)
[2021-10-19] MEDS: SOTALOL 80 MG TABLET PO SCH (09:02)
[2021-10-19] MEDS: FINASTERIDE 5 MG TABLET PO SCH (09:02)
[2021-10-19] MEDS: APIXABAN 2.5 MG TABLET PO SCH (09:03)
[2021-10-19] MEDS: ATORVASTATIN 20 MG TABLET PO SCH (09:03)
[2021-10-19] MEDS: MULTIVITAMIN (OCUVITE) TABLET PO SCH (09:03)
[2021-10-19 09:10] VITALS: BP 152/93
[2021-10-19] MEDS ORDERED: cefTRIAXone 1,000 MG in SODIUM CHLORIDE 0.9% 100 ML IV ONE (10:30)
== END 2021-10-19 13:01 | disposition home health service (06) | DRG 689 ==
LOC: EDUNIT# → EDBD → N.ED 19:18 → N.EDINP 19:18 → N.5E 10-11 03:10
PROVIDERS: ADMIT Family Medicine; ATTEND Family Medicine

== ENCOUNTER 2021-12-02 11:24 | Inpatient (IN) ==
[2021-11-29 12:41] LABS: Basophils % 0.7 % (0.0-0.8); Eosinophils # 0.5 10*3/uL (0.0-0.87); Eosinophils % 7.7 % (0.00-10.9); Hemoglobin 11.7 GM/DL (14.0-18.0); Immature Granulocytes % 0.3 %; Immature Granulocytes Absolute 0.02 #; Mean Corpuscular HGB Conc 31.6 GM/DL (32-36); Mean Platelet Volume 8.9 FL (9.6-12.0); Monocytes # 0.8 10*3/uL (0.11-0.8); Monocytes % 13.6 % (1.7-12.7); Neutrophils % 44.7 % (38.7-73.9); Platelet Count 260 T/CUMM (130-400); Red Cell Distribution Width 14.8 % (9.3-17.3)
[2021-11-29 12:55] LABS: Alanine Aminotransferase 47 U/L (16-61); Albumin 3.1 G/DL (3.4-5.0); Alkaline Phosphatase 116 U/L (45-117); Aspartate Amino Transferase 47 U/L (0-37); Bilirubin,Total < 0.39 MG/DL (0.20-1.00); Blood Urea Nitrogen 32 MG/DL (7-18); Calcium 8.1 MG/DL (8.5-10.1); Carbon Dioxide 24 MMOL/L (21-32); Chloride 109 MMOL/L (98-107); Glucose 157 MG/DL (74-106); Osmolality,Calculated 292.1 MOS/KG (273-304); PT Patient Result 10.8 SECS (10.5-12.0); Partial Thromboplastin Time 28.1 SECS (23.8-32.1); Potassium 4.3 MMOL/L (3.5-5.1); Sodium 142 MMOL/L (136-145); Total Protein 6.8 G/DL (6.4-8.2)
[~2021-12-02 11:24] MED LIST: LACTATED RINGERS 1,000 ML IV SCH; cefTRIAXone 1,000 MG VIAL ONE; cefTRIAXone 1,000 MG in SODIUM CHLORIDE 0.9% 100 ML IV ONE
[2021-12-02] MEDS ORDERED: FAMOTIDINE 20 MG TABLET PO ONE (14:10)
[2021-12-02] MEDS ORDERED: SIMETHICONE CHEW 125 MG TABLET PO PRN (16:16)
[2021-12-02] MEDS ORDERED: HYDROmorphone 1 MG/1 ML SYRINGE IV PRN (16:16)
[2021-12-02] MEDS ORDERED: oxyCODONE/ACETAMINOPHEN 5-325 MG TABLET PO PRN (16:16)
[2021-12-02] MEDS ORDERED: diphenhydrAMINE 50 MG/1 ML VIAL IV PRN (16:16)
[2021-12-02] MEDS ORDERED: ONDANSETRON 4 MG/2 ML VIAL IV PRN (16:16)
[2021-12-02] MEDS ORDERED: PROMETHAZINE 25 MG/1 ML VIAL IM PRN (16:16)
[2021-12-02] MEDS ORDERED: CALCIUM CARBONATE CHEW 500 MG TABLET PO PRN (16:16)
[2021-12-02] MEDS ORDERED: NEOMYCIN/POLYMYXIN IRRIG SOLN 1 ML AMP BLADDERIRR ONE (16:31)
[2021-12-02] MEDS ORDERED: LIDOCAINE 2% 5 ML VIAL ONE (16:32)
[2021-12-02] MEDS ORDERED: propofoL 200 MG/20 ML VIAL IV ONE (16:32)
[2021-12-02] MEDS ORDERED: ONDANSETRON 4 MG/2 ML VIAL ONE (16:32)
[2021-12-02] MEDS ORDERED: fentaNYL 100 MCG/2 ML VIAL ONE (16:32)
[2021-12-02] MEDS ORDERED: SODIUM CHLORIDE 0.9% 1,000 ML IV SCH (17:00)
[2021-12-02] MEDS ORDERED: ePHEDrine 50 MG/ML VIAL ONE (17:06)
[2021-12-02] MEDS ORDERED: ETOMIDATE 40 MG/20 ML VIAL IV ONE (17:50)
[2021-12-02] MEDS ORDERED: LACTATED RINGERS 1,000 ML IV ONE (17:50)
[2021-12-02] MEDS ORDERED: BELLADONNA/OPIUM 30 MG SUPP RECTAL ONE (18:01)
[2021-12-02] MEDS: rOPINIRole 1 MG TABLET PO SCH (20:38)
[2021-12-02] MEDS: SOTALOL 80 MG TABLET PO SCH (20:39)
[2021-12-02] MEDS: TAMSULOSIN 0.4 MG CAPSULE PO SCH (20:39)
[2021-12-02] MEDS: DOCUSATE SODIUM 100 MG CAPSULE PO SCH (20:40)
[2021-12-02] MEDS: MONTELUKAST 10 MG TABLET PO SCH (20:40)
[2021-12-02] MEDS: busPIRone 5 MG TABLET PO SCH (20:40)
[2021-12-02] MEDS: ACETAMINOPHEN 325 MG TABLET PO SCH ×2 (22:06→22:54)
[2021-12-03] MEDS: ACETAMINOPHEN 325 MG TABLET PO SCH ×4 (05:14→23:35)
[2021-12-03 06:54] LABS: Basophils % 0.5 % (0.0-0.8); Eosinophils % 0.4 % (0.00-10.9); Hematocrit 36.6 VOL% (42.0-52.0); Hemoglobin 11.5 GM/DL (14.0-18.0); Immature Granulocytes % 0.5 %; Immature Granulocytes Absolute 0.04 #; Lymphocytes # 0.4 10*3/uL (1.4-4.0); Lymphocytes % 4.5 % (21.2-54.2); Mean Corpuscular HGB Conc 31.4 GM/DL (32-36); Mean Corpuscular Volume 99.7 FL (87-102); Mean Platelet Volume 8.6 FL (9.6-12.0); Monocytes # 1.2 10*3/uL (0.11-0.8); Monocytes % 14.7 % (1.7-12.7); Neutrophils % 79.4 % (38.7-73.9); Platelet Count 251 T/CUMM (130-400); Red Blood Count 3.67 MC/CUMM (3.8-5.5); White Blood Count 8.2 T/CUMM (4-12)
[2021-12-03 07:13] LABS: Osmolality,Calculated 284.5 MOS/KG (273-304)
[2021-12-03] MEDS: cefTRIAXone 1,000 MG in SODIUM CHLORIDE 0.9% 100 ML IV SCH (07:30)
[2021-12-03] MEDS: busPIRone 5 MG TABLET PO SCH ×2 (08:59→21:06)
[2021-12-03] MEDS: ATORVASTATIN 20 MG TABLET PO SCH (09:01)
[2021-12-03] MEDS: FINASTERIDE 5 MG TABLET PO SCH (09:01)
[2021-12-03] MEDS: TAMSULOSIN 0.4 MG CAPSULE PO SCH ×2 (09:01→21:06)
[2021-12-03] MEDS: SOTALOL 80 MG TABLET PO SCH ×2 (09:01→21:05)
[2021-12-03] MEDS: DOCUSATE SODIUM 100 MG CAPSULE PO SCH ×2 (09:02→21:04)
[2021-12-03] MEDS: amLODIPine 10 MG TABLET PO SCH (09:02)
[2021-12-03] MEDS: rOPINIRole 1 MG TABLET PO SCH (21:05)
[2021-12-03] MEDS: MONTELUKAST 10 MG TABLET PO SCH (21:06)
[2021-12-04 05:21] LABS: Basophils % 0.4 % (0.0-0.8); Eosinophils # 0.5 10*3/uL (0.0-0.87); Eosinophils % 7.1 % (0.00-10.9); Hematocrit 32.3 VOL% (42.0-52.0); Immature Granulocytes % 0.3 %; Immature Granulocytes Absolute 0.02 #; Lymphocytes # 1.5 10*3/uL (1.4-4.0); Lymphocytes % 20.5 % (21.2-54.2); Mean Corpuscular Volume 100.9 FL (87-102); Mean Platelet Volume 8.8 FL (9.6-12.0); Monocytes % 13.8 % (1.7-12.7); Neutrophils % 57.9 % (38.7-73.9); Platelet Count 218 T/CUMM (130-400); Red Cell Distribution Width 14.9 % (9.3-17.3); White Blood Count 7.3 T/CUMM (4-12)
[2021-12-04 05:36] LABS: Calcium 7.5 MG/DL (8.5-10.1); Osmolality,Calculated 281.8 MOS/KG (273-304); Potassium 3.9 MMOL/L (3.5-5.1)
[2021-12-04 05:44] LABS: Eosinophils 12 % (0-10); Lymphocytes 16 % (20-55); Total Cells Counted 100
[2021-12-04 05:45] LABS: Macrocytosis Slight; Platelet Estimate Normal
[2021-12-04] MEDS: ACETAMINOPHEN 325 MG TABLET PO SCH ×2 (05:49→12:34)
[2021-12-04] MEDS: cefTRIAXone 1,000 MG in SODIUM CHLORIDE 0.9% 100 ML IV SCH (06:28)
[2021-12-04] MEDS: ATORVASTATIN 20 MG TABLET PO SCH (09:57)
[2021-12-04] MEDS: SOTALOL 80 MG TABLET PO SCH (09:57)
[2021-12-04] MEDS: TAMSULOSIN 0.4 MG CAPSULE PO SCH (09:57)
[2021-12-04] MEDS: DOCUSATE SODIUM 100 MG CAPSULE PO SCH (09:57)
[2021-12-04] MEDS: FINASTERIDE 5 MG TABLET PO SCH (09:58)
[2021-12-04] MEDS: amLODIPine 10 MG TABLET PO SCH (09:58)
[2021-12-04] MEDS: busPIRone 5 MG TABLET PO SCH (09:58)
[2021-12-04 12:15] VITALS: BP 123/53
== END 2021-12-04 14:00 | disposition home or self-care (01) | DRG 666 ==
LOC: N.OR 11:24 → N.SDSINP 11:28 → N.3E 16:16
PROVIDERS: ADMIT Surgery; ATTEND Surgery

== ENCOUNTER 2022-09-05 13:31 | Inpatient (IN) ==
[2022-09-05 13:50] LABS: Basophils # 0.1 10*3/uL (0.0-0.2); Basophils % 0.8 % (0.0-0.8); Eosinophils # 0.4 10*3/uL (0.0-0.87); Eosinophils % 4.4 % (0.00-10.9); Hematocrit 29.9 VOL% (42.0-52.0); Hemoglobin 9.1 GM/DL (14.0-18.0); Immature Granulocytes % 0.4 %; Immature Granulocytes Absolute 0.03 #; Lymphocytes # 2.2 10*3/uL (1.4-4.0); Lymphocytes % 27.6 % (21.2-54.2); Mean Corpuscular HGB Conc 30.4 GM/DL (32-36); Mean Corpuscular Volume 95.8 FL (87-102); Mean Platelet Volume 8.6 FL (9.6-12.0); Monocytes # 1.1 10*3/uL (0.11-0.8); Monocytes % 13.3 % (1.7-12.7); Neutrophils % 53.5 % (38.7-73.9); Platelet Count 277 T/CUMM (130-400); Red Blood Count 3.12 MC/CUMM (3.8-5.5); Red Cell Distribution Width 13.7 % (9.3-17.3); White Blood Count 7.97 T/CUMM (4-12)
[2022-09-05 14:18] LABS: INR 1.9; PT Patient Result 20.1 SECS (10.1-12.1)
[2022-09-05 14:23] LABS: Alanine Aminotransferase 18 U/L (16-61); Albumin 3.1 G/DL (3.4-5.0); Alkaline Phosphatase 83 U/L (45-117); Aspartate Amino Transferase 15 U/L (0-37); Bilirubin,Total < 0.39 MG/DL (0.20-1.00); Blood Urea Nitrogen 33 MG/DL (7-18); Calcium 7.6 MG/DL (8.5-10.1); Carbon Dioxide 25 MMOL/L (21-32); Chloride 108 MMOL/L (98-107); Glucose 137 MG/DL (74-106); Osmolality,Calculated 289.3 MOS/KG (273-304); Potassium 3.4 MMOL/L (3.5-5.1); Sodium 141 MMOL/L (136-145); Total Protein 6.3 G/DL (6.4-8.2)
[2022-09-05] MEDS ORDERED: ACETAMINOPHEN 325 MG TABLET PO PRN (15:22)
[2022-09-05] MEDS ORDERED: ONDANSETRON 4 MG/2 ML VIAL IV PRN (15:22)
[2022-09-05] MEDS ORDERED: POTASSIUM CHLORIDE 20 MEQ TABLET PO STA (15:39)
[2022-09-05] MEDS: ISOSORBIDE MONONITRATE 30 MG TABLET PO SCH (15:57)
[2022-09-05] MEDS: ENOXAPARIN 40 MG/0.4 ML SYRINGE SUBCUT SCH (17:51)
[2022-09-05] MEDS: FUROSEMIDE 40 MG TABLET PO SCH (20:15)
[2022-09-05] MEDS: busPIRone 15 MG TABLET PO SCH (20:15)
[2022-09-05] MEDS: rOPINIRole 1 MG TABLET PO SCH (20:15)
[2022-09-05] MEDS: DOCUSATE SODIUM 100 MG CAPSULE PO SCH (20:15)
[2022-09-05] MEDS: FINASTERIDE 5 MG TABLET PO SCH (20:15)
[2022-09-05] MEDS: TAMSULOSIN 0.4 MG CAPSULE PO SCH (20:15)
[2022-09-05] MEDS: MULTIVITAMIN (OCUVITE) TABLET PO SCH (20:15)
[2022-09-05] MEDS: ATORVASTATIN 20 MG TABLET PO SCH (20:15)
[2022-09-05] MEDS: SOTALOL 80 MG TABLET PO SCH (20:26)
[2022-09-06] MEDS: traMADol 50 MG TABLET PO PRN (03:20)
[2022-09-06 04:20] LABS: Basophils # 0.1 10*3/uL (0.0-0.2); Basophils % 0.7 % (0.0-0.8); Eosinophils # 0.4 10*3/uL (0.0-0.87); Eosinophils % 4.9 % (0.00-10.9); Hemoglobin 8.6 GM/DL (14.0-18.0); Immature Granulocytes % 0.3 %; Immature Granulocytes Absolute 0.03 #; Lymphocytes # 2.1 10*3/uL (1.4-4.0); Lymphocytes % 24.8 % (21.2-54.2); Mean Corpuscular HGB Conc 31.9 GM/DL (32-36); Mean Corpuscular Volume 93.8 FL (87-102); Mean Platelet Volume 8.8 FL (9.6-12.0); Monocytes # 1.3 10*3/uL (0.11-0.8); Monocytes % 14.9 % (1.7-12.7); Neutrophils % 54.4 % (38.7-73.9); Platelet Count 244 T/CUMM (130-400); Red Blood Count 2.88 MC/CUMM (3.8-5.5); Red Cell Distribution Width 13.4 % (9.3-17.3)
[2022-09-06 04:41] LABS: Alanine Aminotransferase 17 U/L (16-61); Alkaline Phosphatase 81 U/L (45-117); Aspartate Amino Transferase 20 U/L (0-37); Bilirubin,Total < 0.39 MG/DL (0.20-1.00); Blood Urea Nitrogen 34 MG/DL (7-18); Calcium 7.6 MG/DL (8.5-10.1); Carbon Dioxide 25 MMOL/L (21-32); Chloride 108 MMOL/L (98-107); Glucose 109 MG/DL (74-106); Osmolality,Calculated 283.7 MOS/KG (273-304); Potassium 3.7 MMOL/L (3.5-5.1); Sodium 138 MMOL/L (136-145); Total Protein 6.4 G/DL (6.4-8.2)
[2022-09-06 04:42] LABS: Risk Ratio 3.48
[2022-09-06 05:47] LABS: INR 2.3; PT Patient Result 23.9 SECS (10.1-12.1)
[2022-09-06] MEDS: MULTIVITAMIN (OCUVITE) TABLET PO SCH ×2 (08:59→23:00)
[2022-09-06] MEDS: SOTALOL 80 MG TABLET PO SCH ×2 (09:00→23:00)
[2022-09-06] MEDS ORDERED: WARFARIN 5 MG TABLET PO SCH (09:00)
[2022-09-06] MEDS: busPIRone 15 MG TABLET PO SCH ×2 (09:00→22:59)
[2022-09-06] MEDS: ISOSORBIDE MONONITRATE 30 MG TABLET PO SCH (09:01)
[2022-09-06] MEDS: PANTOPRAZOLE 40 MG TABLET PO SCH (09:01)
[2022-09-06] MEDS: ASPIRIN CHEW 81 MG TABLET PO SCH (09:01)
[2022-09-06] MEDS: FUROSEMIDE 40 MG TABLET PO SCH ×2 (09:01→23:01)
[2022-09-06] MEDS: TAMSULOSIN 0.4 MG CAPSULE PO SCH ×2 (09:01→23:00)
[2022-09-06] MEDS: amLODIPine 10 MG TABLET PO SCH (09:01)
[2022-09-06] MEDS: MONTELUKAST 10 MG TABLET PO SCH (09:01)
[2022-09-06] MEDS: DOCUSATE SODIUM 100 MG CAPSULE PO SCH ×2 (09:01→22:59)
[2022-09-06] MEDS: FINASTERIDE 5 MG TABLET PO SCH (23:00)
[2022-09-06] MEDS: ENOXAPARIN 40 MG/0.4 ML SYRINGE SUBCUT SCH (23:01)
[2022-09-06] MEDS: rOPINIRole 1 MG TABLET PO SCH (23:01)
[2022-09-06] MEDS: ATORVASTATIN 20 MG TABLET PO SCH (23:02)
[2022-09-07] MEDS: traMADol 50 MG TABLET PO PRN ×2 (00:11→20:56)
[2022-09-07 04:22] LABS: Basophils # 0.1 10*3/uL (0.0-0.2); Basophils % 0.7 % (0.0-0.8); Eosinophils # 0.5 10*3/uL (0.0-0.87); Eosinophils % 5.1 % (0.00-10.9); Hematocrit 26.9 VOL% (42.0-52.0); Hemoglobin 8.3 GM/DL (14.0-18.0); Immature Granulocytes % 0.3 %; Immature Granulocytes Absolute 0.03 #; Lymphocytes # 2.4 10*3/uL (1.4-4.0); Lymphocytes % 27.2 % (21.2-54.2); Mean Corpuscular HGB Conc 30.9 GM/DL (32-36); Mean Corpuscular Volume 94.4 FL (87-102); Monocytes # 1.3 10*3/uL (0.11-0.8); Monocytes % 14.9 % (1.7-12.7); Neutrophils % 51.8 % (38.7-73.9); Platelet Count 260 T/CUMM (130-400); Red Blood Count 2.85 MC/CUMM (3.8-5.5); Red Cell Distribution Width 13.6 % (9.3-17.3); White Blood Count 8.74 T/CUMM (4-12)
[2022-09-07 04:30] LABS: PT Patient Result 21.4 SECS (10.1-12.1)
[2022-09-07 04:46] LABS: Alanine Aminotransferase 16 U/L (16-61); Albumin 2.8 G/DL (3.4-5.0); Alkaline Phosphatase 74 U/L (45-117); Aspartate Amino Transferase 15 U/L (0-37); Blood Urea Nitrogen 34 MG/DL (7-18); Calcium 7.6 MG/DL (8.5-10.1); Carbon Dioxide 27 MMOL/L (21-32); Chloride 109 MMOL/L (98-107); Glucose 108 MG/DL (74-106); Osmolality,Calculated 291.1 MOS/KG (273-304); Potassium 3.6 MMOL/L (3.5-5.1); Sodium 142 MMOL/L (136-145); Total Protein 6.4 G/DL (6.4-8.2)
[2022-09-07 06:24] LABS: Bilirubin,Total < 0.39 MG/DL (0.20-1.00)
[2022-09-07] MEDS: MULTIVITAMIN (OCUVITE) TABLET PO SCH ×2 (09:08→20:54)
[2022-09-07] MEDS: busPIRone 15 MG TABLET PO SCH ×2 (09:09→20:55)
[2022-09-07] MEDS: PANTOPRAZOLE 40 MG TABLET PO SCH (09:09)
[2022-09-07] MEDS: SOTALOL 80 MG TABLET PO SCH ×2 (09:09→21:02)
[2022-09-07] MEDS: amLODIPine 10 MG TABLET PO SCH (09:09)
[2022-09-07] MEDS: MONTELUKAST 10 MG TABLET PO SCH (09:09)
[2022-09-07] MEDS: ASPIRIN CHEW 81 MG TABLET PO SCH (09:09)
[2022-09-07] MEDS: ISOSORBIDE MONONITRATE 30 MG TABLET PO SCH (09:09)
[2022-09-07] MEDS: DOCUSATE SODIUM 100 MG CAPSULE PO SCH ×2 (09:09→20:55)
[2022-09-07] MEDS: TAMSULOSIN 0.4 MG CAPSULE PO SCH ×2 (09:09→20:55)
[2022-09-07] MEDS: FUROSEMIDE 40 MG TABLET PO SCH ×2 (09:10→20:55)
[2022-09-07] MEDS: SODIUM CHLORIDE 0.9% 1,000 ML IV SCH ×2 (12:10→20:56)
[2022-09-07] MEDS: ACETYLCYSTEINE 600 MG CAPSULE PO SCH ×2 (12:10→20:56)
[2022-09-07] MEDS: ATORVASTATIN 20 MG TABLET PO SCH (20:54)
[2022-09-07] MEDS: FINASTERIDE 5 MG TABLET PO SCH (20:55)
[2022-09-07] MEDS: rOPINIRole 1 MG TABLET PO SCH (20:55)
[2022-09-08 04:03] LABS: Basophils # 0.1 10*3/uL (0.0-0.2); Basophils % 0.8 % (0.0-0.8); Eosinophils # 0.5 10*3/uL (0.0-0.87); Eosinophils % 5.3 % (0.00-10.9); Hemoglobin 8.5 GM/DL (14.0-18.0); Immature Granulocytes % 0.2 %; Immature Granulocytes Absolute 0.02 #; Lymphocytes % 23.6 % (21.2-54.2); Mean Corpuscular HGB Conc 30.4 GM/DL (32-36); Mean Corpuscular Volume 95.6 FL (87-102); Mean Platelet Volume 8.7 FL (9.6-12.0); Monocytes # 1.4 10*3/uL (0.11-0.8); Neutrophils % 54.1 % (38.7-73.9); Platelet Count 263 T/CUMM (130-400); Red Blood Count 2.93 MC/CUMM (3.8-5.5); Red Cell Distribution Width 13.5 % (9.3-17.3)
[2022-09-08 04:10] LABS: INR 1.8; PT Patient Result 18.7 SECS (10.1-12.1)
[2022-09-08 04:17] LABS: Albumin 2.8 G/DL (3.4-5.0); Bilirubin,Total 0.4 MG/DL (0.20-1.00); Calcium 7.1 MG/DL (8.5-10.1); Osmolality,Calculated 288.3 MOS/KG (273-304); Potassium 3.5 MMOL/L (3.5-5.1); Total Protein 6.5 G/DL (6.4-8.2)
[2022-09-08 04:28] LABS: Eosinophils 8 % (0-10); Lymphocytes 21 % (20-55); Total Cells Counted 100
[2022-09-08 04:29] LABS: Macrocytosis Slight
[2022-09-08] MEDS: SODIUM CHLORIDE 0.9% 1,000 ML IV SCH ×2 (06:15→18:23)
[2022-09-08] MEDS ORDERED: HEPARIN/NACL 0.9% 2 UNITS/ML 2,000 UNIT/1,000 ML BAG IV ONE (06:48)
[2022-09-08] MEDS ORDERED: MAGNESIUM SULF RIDER 2 GM/50 ML PREMIX IV PRN (06:56)
[2022-09-08] MEDS ORDERED: diphenhydrAMINE CAP 25 MG CAPSULE PO ONE (06:56)
[2022-09-08] MEDS ORDERED: POTASSIUM CHLORIDE RIDER 10 MEQ/100 ML PREMIX IV PRN (06:56)
[2022-09-08] MEDS ORDERED: DIAZEPAM 5 MG TABLET PO ONE (06:56)
[2022-09-08] MEDS ORDERED: HYDROmorphone 1 MG/1 ML SYRINGE ONE (07:43)
[2022-09-08] MEDS ORDERED: ASPIRIN 325 MG TABLET ONE (07:43)
[2022-09-08] MEDS ORDERED: MIDAZOLAM 2 MG/2 ML VIAL ONE (07:43)
[2022-09-08] MEDS ORDERED: diphenhydrAMINE 50 MG/1 ML VIAL ONE (08:00)
[2022-09-08] MEDS ORDERED: BIVALIRUDIN 250 MG VIAL IV ONE (08:22)
[2022-09-08] MEDS ORDERED: TICAGRELOR 90 MG TABLET ONE (09:02)
[2022-09-08] MEDS: ASPIRIN CHEW 81 MG TABLET PO SCH (09:22)
[2022-09-08] MEDS: SOTALOL 80 MG TABLET PO SCH ×2 (09:22→21:20)
[2022-09-08] MEDS: FUROSEMIDE 40 MG TABLET PO SCH ×2 (09:23→21:39)
[2022-09-08] MEDS: TAMSULOSIN 0.4 MG CAPSULE PO SCH ×2 (09:23→21:38)
[2022-09-08] MEDS: DOCUSATE SODIUM 100 MG CAPSULE PO SCH ×2 (09:23→21:38)
[2022-09-08] MEDS: amLODIPine 10 MG TABLET PO SCH (09:23)
[2022-09-08] MEDS: busPIRone 15 MG TABLET PO SCH ×2 (09:23→21:39)
[2022-09-08] MEDS: MULTIVITAMIN (OCUVITE) TABLET PO SCH ×2 (09:23→21:38)
[2022-09-08] MEDS: ACETYLCYSTEINE 600 MG CAPSULE PO SCH ×2 (09:23→21:39)
[2022-09-08] MEDS: PANTOPRAZOLE 40 MG TABLET PO SCH (09:23)
[2022-09-08] MEDS: ISOSORBIDE MONONITRATE 30 MG TABLET PO SCH (09:23)
[2022-09-08] MEDS: MONTELUKAST 10 MG TABLET PO SCH (09:24)
[2022-09-08] MEDS: traMADol 50 MG TABLET PO PRN ×2 (13:36→21:39)
[2022-09-08] MEDS: TICAGRELOR 90 MG TABLET PO SCH (21:38)
[2022-09-08] MEDS: FINASTERIDE 5 MG TABLET PO SCH (21:38)
[2022-09-08] MEDS: ATORVASTATIN 20 MG TABLET PO SCH (21:39)
[2022-09-08] MEDS: rOPINIRole 1 MG TABLET PO SCH (21:39)
[2022-09-09] MEDS: SODIUM CHLORIDE 0.9% 1,000 ML IV SCH (03:16)
[2022-09-09 05:01] LABS: Basophils # 0.1 10*3/uL (0.0-0.2); Basophils % 0.8 % (0.0-0.8); Eosinophils # 0.3 10*3/uL (0.0-0.87); Eosinophils % 3.2 % (0.00-10.9); Hemoglobin 8.6 GM/DL (14.0-18.0); Immature Granulocytes % 0.4 %; Immature Granulocytes Absolute 0.03 #; Lymphocytes # 1.4 10*3/uL (1.4-4.0); Lymphocytes % 17.4 % (21.2-54.2); Mean Corpuscular HGB Conc 30.7 GM/DL (32-36); Mean Corpuscular Volume 96.9 FL (87-102); Mean Platelet Volume 8.6 FL (9.6-12.0); Monocytes # 1.2 10*3/uL (0.11-0.8); Neutrophils % 63.2 % (38.7-73.9); Platelet Count 248 T/CUMM (130-400); Red Blood Count 2.89 MC/CUMM (3.8-5.5); Red Cell Distribution Width 13.7 % (9.3-17.3); White Blood Count 7.93 T/CUMM (4-12)
[2022-09-09 05:17] LABS: Calcium 7.4 MG/DL (8.5-10.1); Potassium 3.4 MMOL/L (3.5-5.1)
[2022-09-09 08:08] LABS: % Iron Saturation 38.2 % (18-50); Ferritin 26.9 ng/mL (26-388)
[2022-09-09 08:10] LABS: Folate 10.96 NG/ML (5.38-24.0)
[2022-09-09] MEDS ORDERED: ALBUTEROL/IPRATROPIUM 3 ML NEB RESP TX ONE (08:24)
[2022-09-09] MEDS ORDERED: POTASSIUM CHLORIDE 20 MEQ TABLET PO ONE (08:59)
[2022-09-09] MEDS ORDERED: FERROUS SULFATE 325 MG TABLET PO SCH (09:00)
[2022-09-09] MEDS ORDERED: ASPIRIN EC 81 MG TABLET PO SCH (09:00)
[2022-09-09] MEDS: ACETYLCYSTEINE 600 MG CAPSULE PO SCH (09:44)
[2022-09-09] MEDS: MULTIVITAMIN (OCUVITE) TABLET PO SCH (09:44)
[2022-09-09] MEDS: DOCUSATE SODIUM 100 MG CAPSULE PO SCH (09:45)
[2022-09-09] MEDS: TICAGRELOR 90 MG TABLET PO SCH (09:45)
[2022-09-09] MEDS: TAMSULOSIN 0.4 MG CAPSULE PO SCH (09:45)
[2022-09-09] MEDS: MONTELUKAST 10 MG TABLET PO SCH (09:45)
[2022-09-09] MEDS: PANTOPRAZOLE 40 MG TABLET PO SCH (09:45)
[2022-09-09] MEDS: FUROSEMIDE 40 MG TABLET PO SCH (09:45)
[2022-09-09] MEDS: amLODIPine 10 MG TABLET PO SCH (09:45)
[2022-09-09] MEDS: busPIRone 15 MG TABLET PO SCH (09:46)
[2022-09-09] MEDS: ISOSORBIDE MONONITRATE 30 MG TABLET PO SCH (09:46)
[2022-09-09] MEDS: SOTALOL 80 MG TABLET PO SCH (09:49)
[2022-09-09 11:28] VITALS: BP 120/73
[2022-09-09] MEDS ORDERED: WARFARIN 5 MG TABLET PO SCH (18:00)
== END 2022-09-09 10:51 | disposition home or self-care (01) | DRG 247 ==
LOC: EDBD → EDUNIT# → N.TELES 13:31 → N.ED 13:31 → N.TELES 16:17
PROVIDERS: ADMIT Family Medicine; ATTEND Family Medicine